=== PATIENT | male | born 1985 | race Hispanic/Latino ===

== ENCOUNTER 2019-12-10 10:14 | Emergency (ER) | payer OTHER ==
--- NOTE | 2019-12-10 11:27 | RAD ---
Exam: Chest one view HISTORY:Cough, generalized weakness and fatigue Comparison: 05/21/2015 FINDINGS: Cardiac silhouette: Normal Aorta: Unremarkable Pulmonary vessels: Normal Costophrenic angles: Clear LUNGS: No masses or consolidation. Pneumothorax: None Osseous abnormalities: None IMPRESSION: No acute cardiopulmonary process.
[2019-12-11 12:13] LABS: SARS-CoV-2 MS2 Positive; SARS-CoV-2 N Gene Positive; SARS-CoV-2 S Gene Positive; SARS-CoV-2 orf1ab Positive
== END 2019-12-10 12:15 | disposition home or self-care (01) ==
LOC: ERS 10:14
DX: U07.1 COVID-19 (principal); R05 Cough; R09.81 Nasal congestion; G47.30 Sleep apnea, unspecified; I25.10 Atherosclerotic heart disease of native coronary artery without angina pectoris; E78.5 Hyperlipidemia, unspecified; I10 Essential (primary) hypertension; G62.9 Polyneuropathy, unspecified; Z87.442 Personal history of urinary calculi
CPT/HCPCS: 36416; 71045; 87635; 99285; U0003